=== PATIENT | female | born 2000 | race Two or more races ===

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

== ENCOUNTER 2021-04-03 15:24 | Outpatient (CLI) | payer OTHER ==
--- NOTE | 2021-04-03 15:57 | XRAY Report ---
PROCEDURE: Shoulder 3 View RT INDICATIONS: PAIN OF RIGHT SHOULDER JOINT TECHNIQUE: 3 views of the shoulder were acquired. COMPARISON: None. FINDINGS: BONES: No acute, displaced fracture. Slight elevation of the distal clavicle in relation to the acrom ion, which may reflect AC joint injury versus normal variant. SOFT TISSUES: No focal abnormality or appreciable pneumothorax. IMPRESSION: 1.Slight elevation of the distal clavicle in relation to the acromion, which may reflect AC joint inj ury versus normal variant. Reviewed by: Salvador Chery MD on 04/03/2021 3:56 PM PDT Approved by: Salvador Chery MD on 04/03/2021 3:56 PM PDT Station ID: [id number]
== END 2021-04-03 15:25 | disposition home or self-care (01) ==
LOC: DI.S 15:24
PROVIDERS: ATTEND Nurse Practitioner Family
DX: M25.511 Pain in right shoulder (principal); R93.6 Abnormal findings on diagnostic imaging of limbs